=== PATIENT | male | born 1975 | race Two or more races ===

== ENCOUNTER 2025-01-25 23:35 | Emergency (ER) | payer BC, OTHER ==
[~2025-01-25] VITALS: Ht 175.3 cm; Wt 81.6 kg
[2025-01-26] MEDS ORDERED: MAG HYDROX/AL HYDROX/SIMETH 30 ML UDC ONE (00:22)
[2025-01-26] MEDS ORDERED: NITROGLYCERIN 0.4 MG/TAB BOTTLE ONE (00:22)
[2025-01-26] MEDS ORDERED: PANTOPRAZOLE 40 MG VIAL ONE (00:22)
[2025-01-26] MEDS: PANTOPRAZOLE 40 MG VIAL IV ONE (00:23)
[2025-01-26] MEDS: MAG HYDROX/AL HYDROX/SIMETH 30 ML UDC PO ONE (00:24)
[2025-01-26] MEDS: NITROGLYCERIN 0.4 MG/TAB BOTTLE SL ONE (00:24)
[2025-01-26 00:26] LABS: PLATELET COUNT (AUTO) 172 K/uL (150-450); RED BLOOD CELL COUNT(AUTO) 5.02 MIL/uL (4.5-6.0); RED CELL DISTRIBUTION WIDTH 13.2 % (11.5-15.0); WHITE BLOOD COUNT (AUTO) 5.1 K/uL (4.3-11.0)
[2025-01-26 00:40] LABS: SODIUM SERUM 138 mmol/L (136-145)
[2025-01-26 01:17] LABS: CALCIUM, SERUM 9.2 mg/dL (8.5-10.1); CREATININE 0.9 mg/dL (0.6-1.3); NT-PRO BNP 26 pg/mL (0-125); UREA NITROGEN, BLOOD 10 mg/dL (7-18)
[2025-01-26 02:27] VITALS: BP 136/87; TEMP 97.6; O2SAT 98
== END 2025-01-26 02:33 | disposition home or self-care (01) ==
LOC: ER 23:38
DX: R07.89 Other chest pain (principal); E78.5 Hyperlipidemia, unspecified; R06.02 Shortness of breath; Z87.891 Personal history of nicotine dependence
CPT/HCPCS: 99285; 71045; 93005; 36415; 96374; 85025; 80048; 84484 ×2; 83880; J7030; J2470